=== PATIENT | female | born 1945 | race Caucasian/White ===

== ENCOUNTER 2018-09-09 11:07 | Emergency (ER) | payer OTHER, MEDICAID ==
[~2018-09-09] VITALS: Ht 152.4 cm; Wt 82.0 kg
[2018-09-09] MEDS ORDERED: ACET-2708 PO (11:22)
[2018-09-09] MEDS ORDERED: TRAM50TA PO (11:22)
[2018-09-09] MEDS ORDERED: KETOROLAC 30MG/ML VIAL IM ONE (15:15)
[2018-09-09 16:18] VITALS: BP 142/79
== END 2018-09-09 16:19 | disposition home or self-care (01) ==
LOC: ER 11:07
DX: S39.012A Strain of muscle, fascia and tendon of lower back, initial encounter (principal); M54.6 Pain in thoracic spine; F17.200 Nicotine dependence, unspecified, uncomplicated; E11.9 Type 2 diabetes mellitus without complications; I10 Essential (primary) hypertension; X58.XXXA Exposure to other specified factors, initial encounter; Y93.89 Activity, other specified; Y92.89 Other specified places as the place of occurrence of the external cause; Y99.8 Other external cause status; Z98.890 Other specified postprocedural states
CPT/HCPCS: 72100; 96372; 99283; J1885

== ENCOUNTER 2018-10-01 10:49 | Emergency (ER) | payer OTHER, MEDICAID ==
[~2018-10-01] VITALS: Ht 157.5 cm; Wt 83.0 kg
[~2018-10-01 10:49] MED LIST: ACET-2708 PO; TRAM50TA PO
[2018-10-01] MEDS ORDERED: KETOROLAC 30MG/ML VIAL IM ONE (12:00)
[2018-10-01] MEDS ORDERED: DIAZEPAM 2 MG TABLET PO ONE (12:00)
[2018-10-01 16:06] VITALS: BP 130/88
== END 2018-10-01 16:09 | disposition home or self-care (01) ==
LOC: ER 10:49
DX: M54.5 Low back pain (principal); G89.29 Other chronic pain; E11.9 Type 2 diabetes mellitus without complications; I10 Essential (primary) hypertension; Z98.890 Other specified postprocedural states
CPT/HCPCS: 72131; 96372; 99284; J1885

== ENCOUNTER 2022-07-30 03:40 | Emergency (ER) | payer MEDICARE, OTHER ==
[~2022-07-30] VITALS: Ht 157.5 cm; Wt 86.0 kg
[2022-07-30] MEDS: ONDANSETRON HCL 4MG/2ML INJ IV STA ×2 (04:08→04:12)
[2022-07-30 04:14] LABS: BASOPHILS % 0.3 % (0.0-2.0); EOSINOPHILS % 1.7 % (0.0-5.0); HEMATOCRIT. 42.8 % (36.0-48.0); HEMOGLOBIN. 13.8 g/dL (12.0-16.0); LYMPHOCYTES % 20.4 % (20.0-50.0); MEAN CORPUSCULAR HEMOGLOBIN 26.3 pg (28.0-32.0); MEAN CORPUSCULAR VOLUME 81.9 fL (81.0-99.0); MEAN PLATELET VOLUME 9.9 fl (7.4-10.4); MONOCYTES % 7.9 % (2.0-8.0); NEUTROPHILS % 69.7 % (40.0-76.0); PLATELET 144 x1000/uL (130-400); RED BLOOD CELL COUNT 5.23 mill/uL (4.2-5.4); RED CELL DISTRIBUTION WIDTH 14.8 % (11.6-14.6)
[2022-07-30 04:31] LABS: CHLORIDE 107 mEq/L (98-107)
[2022-07-30 04:37] LABS: ETHANOL BLOOD < 10 mg/dL
[2022-07-30 04:49] LABS: PROTHROMBIN TIME 10.4 sec (9.6-11.0)
[2022-07-30 06:17] LABS: CLARITY URINE CLOUDY (CLEAR); COLOR URINE YELLOW (YELLOW); KETONES URINE NEGATIVE (NEGATIVE); LEUKOCYTE ESTERASE URINE 2+ (NEGATIVE); NITRITE URINE NEGATIVE (NEGATIVE); OCCULT BLOOD URINE TRACE (NEGATIVE); PH URINE 6.5 (4.5-8.0); PROTEIN URINE 1+ (NEGATIVE); SPECIFIC GRAVITY URINE 1.029 (1.005-1.030); UROBILINOGEN URINE 0.2 E.U./dL (0.2-1.0)
[2022-07-30] MEDS ORDERED: MORPHINE SULFATE 0.5MG/ML SYR 1ML(NEO) IV ONE (06:30)
[2022-07-30] MEDS ORDERED: MORPHINE SULFATE 4 MG/ML CPJ (NOT FOR IM USE) IV SCH (06:45)
[2022-07-30] MEDS ORDERED: IOHEXOL-300 100 ML BOTTLE ONE (07:05)
[2022-07-30] MEDS ORDERED: LEVOFLOXACIN 500MG TABLET PO SCH (11:45)
[2022-07-30] MEDS ORDERED: LEVO-65 MT (11:46)
[2022-07-30 12:11] VITALS: BP 157/54
== END 2022-07-30 14:03 ==
LOC: ER 03:40
DX: N39.0 Urinary tract infection, site not specified (principal); E78.00 Pure hypercholesterolemia, unspecified; E11.9 Type 2 diabetes mellitus without complications; Z86.39 Personal history of other endocrine, nutritional and metabolic disease
CPT/HCPCS: 36415; 71045; 74176; 74177; 80053; 80320; 81003; 82962; 83605; 83690; 85025; 85610; 87086; 96374; 99285; J2270; J2405; Q9967; G0480

== ENCOUNTER 2024-01-06 16:01 | Emergency (ER) | payer MEDICARE, MEDICAID ==
[~2024-01-06] VITALS: Ht 162.6 cm; Wt 73.0 kg
[~2024-01-06 16:01] MED LIST changes: +LEVO-65 MT
[2024-01-06 16:04] VITALS: O2SAT 96
[2024-01-06] MEDS ORDERED: BACTRIM (16:04)
[2024-01-06 18:34] VITALS: BP 121/78; PULSE 69; RESP 15; TEMP 98
== END 2024-01-06 18:37 ==
LOC: ER 16:01
DX: L02.214 Cutaneous abscess of groin (principal); E78.00 Pure hypercholesterolemia, unspecified; E11.9 Type 2 diabetes mellitus without complications; F41.9 Anxiety disorder, unspecified; F32.A Depression, unspecified; Z86.39 Personal history of other endocrine, nutritional and metabolic disease
CPT/HCPCS: 99283

== ENCOUNTER 2025-05-18 18:03 | Inpatient (IN) | payer MEDICARE, MEDICAID ==
[~2025-05-18] VITALS: Ht 167.6 cm; Wt 62.8 kg
[~2025-05-18 18:03] MED LIST changes: +AMLO10TA80 PO; +ATOR20TA65 PO; +BLOO-1823; +FAMO20TA8 PO; +INSU100I28 SUBCUT; -LEVO-65 MT; +QUET50TA PO; +SERT25TA74 PO; -TRAM50TA PO
[2025-05-18 18:06] VITALS: O2SAT 96
[2025-05-18 18:36] LABS: BG BASE EXCESS -2.6 mmol/L (-2.0-3.0); BG CARBOXYHEMOGLOBIN 1.4 % (0.5-1.5); BG DEOXYHEMOGLOBIN 4.1 % (0.0-5.0); BG FRACTION INSPIRED OXYGEN 21; BG HCO3 ACT 21.0 mmol/L (21.0-28.0); BG METHEMOGLOBIN 0.3 % (0.5-1.5); BG OXYGEN SATURATION 95.8 % (94.0-98.0); BG OXYHEMOGLOBIN 94.2 % (94.0-98.0); BG PCO2 33.7 mmHg (32.0-45.0); BG PH 7.413 (7.350-7.450); BG PO2 80.2 mmHg (83.0-108.0); BG SAMPLE SITE RIGHT RADIAL; BG TOTAL HEMOGLOBIN 16.5 g/dL (12.0-16.0); BG VENT MODE ROOM AIR
[2025-05-18] MEDS: SODIUM CHLORIDE 0.9% 1,000 ML IV ONE (18:44)
[2025-05-18] MEDS: PIPERACILLIN/TAZO 3.375G/50ML 50 ML IV ONE (18:58)
[2025-05-18 19:02] LABS: BASOPHILS % 0.5 % (0.0-2.0); EOSINOPHILS % 0.9 % (0.0-5.0); HEMATOCRIT. 50.6 % (36.0-48.0); HEMOGLOBIN. 15.8 g/dL (12.0-16.0); LYMPHOCYTES % 22.7 % (20.0-50.0); MEAN PLATELET VOLUME 10.4 fl (7.4-10.4); MONOCYTES % 14.2 % (2.0-8.0); NEUTROPHILS % 61.7 % (40.0-76.0); PLATELET 149 x1000/uL (130-400); RED BLOOD CELL COUNT 5.81 mill/uL (4.2-5.4); RED CELL DISTRIBUTION WIDTH 15.8 % (11.6-14.6)
[2025-05-18 19:11] LABS: INR 1.0
[2025-05-18 19:16] LABS: UREA NITROGEN BLOOD 25 mg/dL (9-23)
[2025-05-18 19:17] LABS: CREATININE 1.2 mg/dL (0.6-1.0)
[2025-05-18 19:18] LABS: PROTEIN TOTAL 7.1 g/dL (6.0-8.3); TROPONIN I HIGH SENSITIVITY 12 ng/L (3.0-34)
[2025-05-18 19:19] LABS: ASPARTATE AMINOTRANSFERASE 16 IU/L (<34); BILIRUBIN DIRECT 0.1 mg/dL (<=3.0); BILIRUBIN TOTAL 0.3 mg/dL (0.1-1.0)
[2025-05-18] MEDS: VANCOMYCIN 1G PREMIX 200 ML IV ONE (19:34)
[2025-05-18] MEDS ORDERED: BLOOD SUGAR DIAGNOSTIC STRIP TEST PRN (19:45)
[2025-05-18] MEDS ORDERED: INSULIN REGULAR (DRIP) 100 UNITS in SODIUM CHLORIDE 0.9% 99 ML IV SCH (19:45)
[2025-05-18] MEDS ORDERED: POTASSIUM CHLORIDE 40 MEQ in SODIUM CHLORIDE 0.9% 230 ML IV PRN (19:45)
[2025-05-18] MEDS ORDERED: DEXTROSE 50% WATER 50ML SYRINGE IV PRN (19:45)
[2025-05-18] MEDS: BLOOD SUGAR DIAGNOSTIC STRIP TEST SCH (20:37)
[2025-05-18] MEDS: INSULIN REGULAR (HUMULIN R) 1000UNITS/10ML VIAL IV ONE (20:40)
[2025-05-18] MEDS: LACTATED RINGERS 1,000 ML IV SCH (20:45)
[2025-05-18] MEDS: INSULIN REGULAR (DRIP) 100 UNITS in SODIUM CHLORIDE 0.9% 99 ML IV SCH (21:03)
[2025-05-18] MEDS ORDERED: IPRATROPIUM/ALBUTEROL 0.5-3(2.5)MG/3ML NEB NEB PRN (21:15)
[2025-05-18] MEDS ORDERED: MAGNESIUM/ALUMINUM HYDROXIDE/SIMETHICONE 30ML UDC PO PRN (21:30)
[2025-05-18] MEDS ORDERED: ACETAMINOPHEN 325MG TABLET PO PRN (21:30)
[2025-05-18] MEDS ORDERED: HYDROCODONE/ACETAMINOPHEN 5/325MG TABLET PO PRN (21:30)
[2025-05-18] MEDS ORDERED: MORPHINE SULFATE 2 MG/ML INJ (NOT FOR IM USE) IV PRN (21:30)
[2025-05-18] MEDS ORDERED: CLONIDINE 0.1MG TABLET PO PRN (21:30)
[2025-05-18] MEDS ORDERED: ZOLPIDEM TARTRATE 5MG TABLET PO PRN (21:30)
[2025-05-18] MEDS ORDERED: ONDANSETRON HCL 4MG/2ML INJ IV PRN (21:30)
[2025-05-18] MEDS ORDERED: ENOXAPARIN 40MG/0.4ML SYR SUBCUT SCH (21:30)
[2025-05-18] MEDS ORDERED: NALOXONE HCL 0.4MG/ML VIAL IV PRN (21:45)
[2025-05-18 21:55] LABS: CLARITY URINE TURBID (CLEAR); COLOR URINE YELLOW (YELLOW); GLUCOSE URINE 3+ (NEGATIVE); KETONES URINE TRACE (NEGATIVE); LEUKOCYTE ESTERASE URINE 2+ (NEGATIVE); NITRITE URINE NEGATIVE (NEGATIVE); OCCULT BLOOD URINE 2+ (NEGATIVE); PH URINE 5.5 (4.5-8.0); PROTEIN URINE 1+ (NEGATIVE); SPECIFIC GRAVITY URINE 1.033 (1.005-1.030); UROBILINOGEN URINE 0.2 E.U./dL (0.2-1.0)
[2025-05-18 22:09] LABS: BACTERIA URINE 2+; SQUAMOUS EPITHELIAL CELL URINE 1+ /lpf (RARE/1+); YEAST URINE 2+
[2025-05-18 22:10] LABS: *AMPHETAMINES SCREEN URINE NEGATIVE (NEGATIVE); *BARBITURATES SCREEN URINE NEGATIVE (NEGATIVE); *BENZODIAZEPINES SCREEN URINE NEGATIVE (NEGATIVE); *COCAINE SCREEN URINE NEGATIVE (NEGATIVE); CANNABINOID URINE SCREEN NEGATIVE (NEGATIVE); METHADONE URINE SCREEN NEGATIVE (NEGATIVE); OPIATES URINE SCREEN NEGATIVE (NEGATIVE); PHENCYCLIDINE URINE SCREEN NEGATIVE (NEGATIVE); WBC URINE TNTC /hpf (0-2)
[2025-05-18 22:11] LABS: ECSTASY MDMA SCREEN URINE NEGATIVE (NEGATIVE)
[2025-05-18 22:20] LABS: TROPONIN I HIGH SENSITIVITY 12 ng/L (3.0-34)
[2025-05-18] MEDS: DEXT 5%/LACTATED RINGERS 1,000 ML IV SCH (22:30)
[2025-05-18] MEDS: ENOXAPARIN 40MG/0.4ML SYR SUBCUT SCH (23:27)
[2025-05-19] VITALS (36 sets, daily range): BP systolic 82–164; BP diastolic 47–73; PULSE 53–76; RESP 10–19; TEMP 36.5848–36.8; O2SAT 94–99
[2025-05-19] MEDS: PIPERACILLIN/TAZO 3.375G/50ML 50 ML IV SCH (00:55)
[2025-05-19 05:58] LABS: UREA NITROGEN BLOOD 16 mg/dL (9-23)
[2025-05-19 06:00] LABS: PHOSPHORUS 1.3 mg/dL (2.5-4.9)
[2025-05-19 06:11] LABS: BASOPHILS % 0.4 % (0.0-2.0); EOSINOPHILS % 1.9 % (0.0-5.0); HEMATOCRIT. 46.7 % (36.0-48.0); HEMOGLOBIN. 14.3 g/dL (12.0-16.0); LYMPHOCYTES % 10.1 % (20.0-50.0); MEAN PLATELET VOLUME 10.5 fl (7.4-10.4); MONOCYTES % 11.9 % (2.0-8.0); NEUTROPHILS % 75.7 % (40.0-76.0); PLATELET 109 x1000/uL (130-400); RED BLOOD CELL COUNT 5.29 mill/uL (4.2-5.4); RED CELL DISTRIBUTION WIDTH 16.1 % (11.6-14.6)
[2025-05-19] MEDS: KCL 20MEQ/100ML PREMIX 100 ML IV PRN (06:30)
[2025-05-19 08:12] LABS: CREATININE 0.8 mg/dL (0.6-1.0)
[2025-05-19 08:50] LABS: TROPONIN I HIGH SENSITIVITY 12 ng/L (3.0-34)
[2025-05-19] MEDS: PANTOPRAZOLE SODIUM 40 MG/VIAL IV SCH (09:05)
[2025-05-19] MEDS: MAGNESIUM 2 G PREMIX 50 ML IV PRN (10:38)
[2025-05-19] MEDS ORDERED: DEXTROSE 50% WATER 50ML SYRINGE IV PRN (11:00)
[2025-05-19] MEDS: SODIUM PHOSPHATE 15 MMOL in SODIUM CHLORIDE 0.9% 245 ML IV PRN (12:01)
[2025-05-19] MEDS: BLOOD SUGAR DIAGNOSTIC STRIP TEST SCH (12:19)
[2025-05-19] MEDS: INSULIN LISPRO 100 UNITS/ML SUBCUT SCH (12:26)
[2025-05-19] MEDS: DEXT 5%/0.45% NACL KCL 20MEQ/L 1,000 ML IV SCH (13:21)
[2025-05-19 17:01] LABS: CREATININE 0.6 mg/dL (0.6-1.0); UREA NITROGEN BLOOD 10 mg/dL (9-23)
[2025-05-19] MEDS ORDERED: VANCOMYCIN 1GM/200ML PMX (BAXTER) IV SCH (18:00)
[2025-05-19] MEDS ORDERED: VANCOMYCIN 1GM PMX (XELLIA) 200 ML IV SCH (21:00)
[2025-05-19] MEDS: VANCOMYCIN 750MG/150ML (BAXTER) IV SCH (21:15)
[2025-05-19] MEDS: INSULIN GLARGINE 100 UNITS/ML SUBCUT SCH (21:16)
[2025-05-19] MEDS: FLUCONAZOLE 100MG TABLET PO SCH (23:15)
[2025-05-20] VITALS (7 sets, daily range): BP systolic 117–145; BP diastolic 40–79; PULSE 60–74; RESP 13–18; TEMP 36–37; O2SAT 94–100
[2025-05-20 07:31] LABS: BASOPHILS % 0.4 % (0.0-2.0); EOSINOPHILS % 6.4 % (0.0-5.0); HEMATOCRIT. 46.7 % (36.0-48.0); HEMOGLOBIN. 14.5 g/dL (12.0-16.0); LYMPHOCYTES % 22.1 % (20.0-50.0); MEAN PLATELET VOLUME 10.5 fl (7.4-10.4); MONOCYTES % 10.0 % (2.0-8.0); NEUTROPHILS % 61.1 % (40.0-76.0); PLATELET 116 x1000/uL (130-400); RED BLOOD CELL COUNT 5.43 mill/uL (4.2-5.4); RED CELL DISTRIBUTION WIDTH 15.6 % (11.6-14.6)
[2025-05-20 07:37] LABS: CREATININE 0.6 mg/dL (0.6-1.0); UREA NITROGEN BLOOD 8 mg/dL (9-23)
[2025-05-20] MEDS: ASPIRIN 81MG TABLET PO SCH (11:02)
[2025-05-20] MEDS: VANCOMYCIN 750MG/150ML (BAXTER) IV SCH (14:40)
[2025-05-20] MEDS: ATORVASTATIN CALCIUM 40MG TABLET PO SCH (21:48)
[2025-05-21] VITALS: BP 107/42; PULSE 61; RESP 18; TEMP 36.3; O2SAT 100
[2025-05-21 04:00] VITALS: BP 125/46; PULSE 60; RESP 18; TEMP 36.3; O2SAT 97
[2025-05-21 08:00] VITALS: BP 136/52; PULSE 60; RESP 20; TEMP 36.5; O2SAT 98
[2025-05-21] MEDS: DEXTROSE 5% WATER 1,000 ML IV SCH (10:09)
[2025-05-21 12:00] VITALS: BP 144/59; PULSE 61; RESP 20; TEMP 36.4; O2SAT 96
[2025-05-21 12:48] LABS: CREATININE 0.6 mg/dL (0.6-1.0)
[2025-05-21 12:49] LABS: UREA NITROGEN BLOOD 7 mg/dL (9-23)
[2025-05-21] MEDS ORDERED: ASPI-1160 PO (15:25)
[2025-05-21] MEDS ORDERED: LIP40 PO (15:25)
[2025-05-21 16:00] VITALS: BP 127/47; PULSE 61; RESP 18; TEMP 36.6; O2SAT 98
[2025-05-21 18:12] LABS: BASOPHILS % 0.3 % (0.0-2.0); EOSINOPHILS % 7.0 % (0.0-5.0); HEMATOCRIT. 41.5 % (36.0-48.0); HEMOGLOBIN. 11.5 g/dL (12.0-16.0); LYMPHOCYTES % 29.3 % (20.0-50.0); MEAN PLATELET VOLUME 11.1 fl (7.4-10.4); MONOCYTES % 9.3 % (2.0-8.0); NEUTROPHILS % 54.1 % (40.0-76.0); PLATELET 83 x1000/uL (130-400); RED BLOOD CELL COUNT 4.18 mill/uL (4.2-5.4); RED CELL DISTRIBUTION WIDTH 16.5 % (11.6-14.6)
[2025-05-21 19:22] VITALS: BP 127/47; PULSE 61; TEMP 97.9
== END 2025-05-21 21:10 | DRG 637 ==
LOC: ER 18:03 → EDBEDREQSVC 19:40 → MICUNO 19:40 → EDBEDREQTM 19:40 → EDBEDREQ 19:43 → ENRESERV 05-19 00:01 → 8WST 05-20 00:55
PROVIDERS: ADMIT Internal Medicine; ATTEND Internal Medicine
DX: E11.10 Type 2 diabetes mellitus with ketoacidosis without coma (principal); L89.313 Pressure ulcer of right buttock, stage 3; L89.323 Pressure ulcer of left buttock, stage 3; G93.40 Encephalopathy, unspecified; E87.0 Hyperosmolality and hypernatremia; L89.156 Pressure-induced deep tissue damage of sacral region; R13.10 Dysphagia, unspecified; N39.0 Urinary tract infection, site not specified; N17.9 Acute kidney failure, unspecified; I10 Essential (primary) hypertension; E03.9 Hypothyroidism, unspecified; F03.90 Unspecified dementia, unspecified severity, without behavioral disturbance, psychotic disturbance, mood disturbance, and anxiety; F32.A Depression, unspecified; R62.7 Adult failure to thrive; E86.0 Dehydration; E86.1 Hypovolemia; E87.6 Hypokalemia; E87.8 Other disorders of electrolyte and fluid balance, not elsewhere classified; E78.00 Pure hypercholesterolemia, unspecified; F41.9 Anxiety disorder, unspecified; R74.8 Abnormal levels of other serum enzymes; Z79.4 Long term (current) use of insulin; Z86.73 Personal history of transient ischemic attack (TIA), and cerebral infarction without residual deficits; Z68.22 Body mass index [BMI] 22.0-22.9, adult
CPT/HCPCS: 36415; 36600; 71045; 80048; 80076; 80202; 80305; 81003; 82010; 82375; 82805; 82962; 83036; 83605; 83735; 83880; 83930; 84100; 84145; 84443; 84484; 85025; 86850; 86870; 86900; 93005; 93970; 99291; A4606; J1650; J1815; J2470; J2543; J3373; J3475; J3480; J3490; J7030; J7050; J7070; J7120; J7121